=== PATIENT | female | born 1985 | race Caucasian/White ===

== ENCOUNTER 2017-05-06 20:59 | Emergency (ER) | payer SELFPAY ==
[2017-05-06] MEDS ORDERED: MORPHINE SULFATE IR 15 MG TABLET PO ONE (23:27)
[2017-05-06] MEDS ORDERED: ACETAMINOPHEN 325 MG TABLET PO ONE (23:27)
[2017-05-06] MEDS ORDERED: IBUPROFEN 600 MG TABLET PO ONE (23:27)
--- NOTE | 2017-05-07 00:11 | RADIOLOGY REPORT (SQ) ---
EXAM DESCRIPTION: CHEST SINGLE VIEW COMPLETED DATE/TIME: 05/06/2017 11:54 pm REASON FOR STUDY: sob, trauma COMPARISON: None. EXAM PARAMETERS: NUMBER OF VIEWS: One view. TECHNIQUE: Single frontal radiographic view of the chest acquired. RADIATION DOSE: NA LIMITATIONS: None. FINDINGS: LUNGS AND PLEURA: No opacities, masses or pneumothorax. No pleural effusion. MEDIASTINUM AND HILAR STRUCTURES: No masses. Contour normal. HEART AND VASCULAR STRUCTURES: Heart normal in size. Normal vasculature. BONES: No acute findings. HARDWARE: None in the chest. OTHER: No other significant finding. IMPRESSION: NO ACUTE RADIOGRAPHIC FINDING IN THE CHEST. TECHNICAL DOCUMENTATION: JOB ID: [id number]
[2017-05-07] MEDS ORDERED: HYDROCODONE/ACETAMINOPHEN 5-325 MG 6 TAB/DSPK PO PRN (01:48)
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
[2017-05-07 03:03] VITALS: BP 120/80
== END 2017-05-07 03:03 | disposition home or self-care (01) ==
LOC: ER 20:59
DX: R07.9 Chest pain, unspecified (principal); R06.02 Shortness of breath; M25.512 Pain in left shoulder; V19.9XXA Pedal cyclist (driver) (passenger) injured in unspecified traffic accident, initial encounter
CPT/HCPCS: 71010; 99284

== ENCOUNTER 2019-05-07 06:59 | Emergency (ER) | payer SELFPAY ==
[2019-05-07] MEDS ORDERED: OXYCODONE-ACETAMINOPHEN 5-325 MG TABLET PO ONE (07:51)
[2019-05-07] MEDS ORDERED: ONDANSETRON 4 MG TAB.RAPDIS PO ONE (07:52)
--- NOTE | 2019-05-07 08:05 | ER Document Report ---
ED Extremity Problem, Lower - General Chief Complaint: Ankle Injury Stated Complaint: LEFT FOOT INJURY Time Seen by Provider: 05/07/19 07:42 TRAVEL OUTSIDE OF THE [place] IN LAST 30 DAYS: No - HPI Notes: This is a 33-year-old female who presents today with a complaint of left foot injury suffered this morning. Patient states that she was going up some steps when she lost her footing and fell. She states that many people have been falling up the steps at her house because of the nature of the carpeting. She injured her left foot. She denies any other injuries. She denies loss of consciousness. She describes the symptoms as moderate. Pain is worse with palpation and weightbearing. - Related Data Allergies/Adverse Reactions: Penicillins Adverse Reaction (Verified 05/07/19 07:02) Past Medical History - Social History Smoking Status: Current Some Day Smoker Frequency of alcohol use: None Drug Abuse: None Family History: Reviewed & Not Pertinent Renal/ Medical History: Denies: Hx Peritoneal Dialysis Review of Systems - Review of Systems Cardiovascular: denies: Chest pain Respiratory: denies: Cough Gastrointestinal: denies: Abdominal pain Musculoskeletal: Other - Left foot pain. denies: Back pain, Ankle swelling Neurological/Psychological: denies: Weakness -: Yes All other systems reviewed and negative Physical Exam - Vital signs Vitals: Temp Pulse Resp BP Pulse Ox 97.3 F 75 18 115/84 98 05/07/19 07:03 05/07/19 07:03 05/07/19 07:03 05/07/19 07:03 05/07/19 07:03 - General General appearance: Appears well, Alert - Respiratory Respiratory status: No respiratory distress Chest status: Nontender Breath sounds: Normal Chest palpation: Normal - Cardiovascular Rhythm: Regular Heart sounds: Normal auscultation Murmur: No - Abdominal Inspection: Normal Distension: No distension Bowel sounds: Normal Tenderness: Nontender Organomegaly: No organomegaly - Extremities General upper extremity: Normal inspection, Nontender, Normal color, Normal ROM, Normal temperature General lower extremity: Normal color, Normal temperature. No: Yara's sign Foot: Tender, Deformity - There is deformity of the left third and fourth toes. There is tenderness. Normal distal neurovascular exam of the left lower extremity. - Neurological Neuro grossly intact: Yes - Nonfocal neurologic exam. GCS is 15. Course - Re-evaluation Re-evalutation: 05/07/19 08:05 Clinical picture suggestive of foot fracture versus dislocation. 05/07/19 08:39 Patient reevaluated. Patient is doing well. She is stable for discharge. Follow-up discussed with patient. Will refer her to Ortho. - Vital Signs Vital signs: Temp Pulse Resp BP Pulse Ox 97.3 F 75 18 115/84 98 05/07/19 07:03 05/07/19 07:03 05/07/19 07:03 05/07/19 07:03 05/07/19 07:03 Procedures - Immobilization Left Proximal Toe 3rd digit Time completed: 08:26 Pre-Proc Neuro Vasc Exam: Normal Immobilizer type: Post-op shoe, Other - Jina tape toes Performed by: Provider assisted Post-Proc Neuro Vasc Exam: Normal Alignment checked and good: Yes Notes: 05/07/19 08:27 I adjusted the toes to normal anatomical position, use [place] to jina tape the second third and fourth toes together and toe. Normal distal neurovascular exam post procedure. Discharge - Discharge Clinical Impression: Foot fracture, left Qualifiers: Encounter type: initial encounter Fracture type: closed Qualified Code(s): S92.902A - Unspecified fracture of left foot, initial encounter for closed fracture Toe fracture, left Qualifiers: Encounter type: initial encounter Toe: unspecified toe Fracture type: closed Fracture alignment: nondisplaced Qualified Code(s): S92.912A - Unspecified fracture of left toe(s), initial encounter for closed fracture Disposition: HOME, SELF-CARE Instructions: Foot Fracture ([facility]), Fractured Toe ([facility]) Prescriptions: Oxycodone HCl/Acetaminophen [Percocet 5-325 mg Tablet] 1 - 2 tab PO Q4H PRN #15 tablet PRN Reason: Referrals: RUTHY SANABRIA JR, DO [ACTIVE PROVISIONAL STAFF] - Follow up in 3-5 days (Call Thursday to schedule appointment.)
--- NOTE | 2019-05-07 08:32 | RADIOLOGY REPORT (SQ) ---
EXAM DESCRIPTION: TOE LEFT COMPLETED DATE/TIME: 05/07/2019 7:29 am REASON FOR STUDY: fell down steps, toes dislocated. COMPARISON: None. NUMBER OF VIEWS: Three views. TECHNIQUE: AP, lateral, and oblique images acquired of the left toes. LIMITATIONS: None. FINDINGS: MINERALIZATION: Normal. BONES: Acute transverse fractures, bases of the left 3rd 4th and 5th proximal phalanges. Varus angu lation of the distal fracture fragments. JOINTS: No effusions. SOFT TISSUES: No soft tissue swelling. No foreign body. OTHER: No other significant finding. IMPRESSION: Acute transverse fractures, bases of the left 3rd 4th and 5th proximal phalanges. Varu s angulation of the distal fracture fragments. COMMENT: SITE OF TRAUMA/COMPLAINT MARKED/STAMP COMPLETED: Yes TECHNICAL DOCUMENTATION: JOB ID: [id number] [employer]- All Rights Reserved Reading location - IP/workstation name: [email or web address]
[2019-05-07 08:51] VITALS: BP 119/73
== END 2019-05-07 08:40 | disposition home or self-care (01) ==
LOC: ER 06:59
DX: S92.512A Displaced fracture of proximal phalanx of left lesser toe(s), initial encounter for closed fracture (principal); M79.672 Pain in left foot; W10.9XXA Fall (on) (from) unspecified stairs and steps, initial encounter; F17.200 Nicotine dependence, unspecified, uncomplicated
CPT/HCPCS: 73660; S0119; 99283